=== PATIENT | female | born 1990 | race Caucasian/White ===

== ENCOUNTER 2024-11-17 12:29 | Outpatient (AMB) | payer OTHER, SELFPAY ==
--- NOTE | 2024-11-17 12:38 | MHC.OFFVIS ---
Vital Signs 11/17/24 12:48 Height 5 ft 7 in Weight 160 lb BMI 25.1 BP 162/96 H Blood Pressure Location Rt brachial Position Sitting Pulse 104 H Pulse Source Pulse Oximeter Pulse Oximetry (%) 100 Oxygen Delivery Method Room Air Intake Visit Reasons: Constipation Intake Note: New pt for initial eval of constipation. CC; Pt states she is here for second opinion from [facility]. Pt reports her PCP would like for her to have colonoscopy however, [facility] had refused to perform one for her. Pt has been experiencing RUQ pain, generalized abd cramping, bloating, and constipation for ~ 1 year. 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 Reports onset almost 3 years ago. Can go anwhere between 3-7 days without having a BM. Has been taking miralax and lactulose for this without significant change. Has also been eliminating certain triggers without much effect. one BM per week which is bristol scale 1-2. Has frequent urges but unable to evacuate. Strains. Spends 5-10 mins on the toilet. Uses a stool to keep her legs up while defecation. Diet: adequate hydration. Some room for fiber addition. Has good activity levels. Currently on linzess 145 mcg + lactulose once daily. Causes bloating and cramping. Did not notice much difference going from 72 to 145 mcg in dosing. Has also tried trulance in the past for almost a year before she switched to linzess. [facility] Medical History (Updated 11/17/24 @ 13:18 by Kalyani Isbell MD) Constipation Family History (Updated 11/17/24 @ 12:45 by CONNIE Avila) Maternal Grandfather Colon cancer Review of Systems Const All systems reviewed & are unremarkable except as noted in HPI and below Physical Exam Vital Signs: Last Vital Signs Pulse 104 H 11/17/24 12:48 BP 162/96 H 11/17/24 12:48 Pulse Ox 100 11/17/24 12:48 Oxygen Delivery Method Room Air 11/17/24 12:48 BMI result Body Mass Index 25.1 Assessment & Plan Assessment & Plan (1) IBS (irritable bowel syndrome): Code(s): K58.9 - Irritable bowel syndrome, unspecified Category: Medical Plan Sx are consistent with IBS-C. Limited effect with osmotic laxatives, trulance and linzess. Will trial amitiza. Plan: - Labs ordered to r/o other causes such as hypothyroid, hypercalcemia, celiac etc. - Cont good hydration - Add fiber supplementation - Cont to elevate legs while having a BM - Stop linzess, start amitiza 8 mcg BID - Stop lactulose to avoid bloating and cramping. Start miralax back instead - Reviewed miralax can be titrated to effect - Add bisacodyl 10 mg once daily x short term Follow up 8 weeks to review Orders: Orders TSH reflex Free T4 Today K58.9 - Irritable bowel syndrome, unspecified Complete Blood Count no Diff Today K58.9 - Irritable bowel syndrome, unspecified Immunoglobulin A Today K58.9 - Irritable bowel syndrome, unspecified Transglutaminase IgA Today K58.9 - Irritable bowel syndrome, unspecified Calcium Today K58.9 - Irritable bowel syndrome, unspecified Magnesium Today K58.9 - Irritable bowel syndrome, unspecified Medications: New lubiprostone (Amitiza) 8 mcg PO BID 180 caps 0RF 90 days bisacodyl 10 mg (2 x 5 mg) PO BEDTIME 28 tabs 0RF 14 days Coding Level of Care Code New Pt Level 4 (42024) Complex EM visit Add On G2211 Diagnoses IBS (irritable bowel syndrome) K58.9
[2024-11-17 12:48] VITALS: BP 162/96; PULSE 104; O2SAT 100; BMI 25.1
--- OUTSIDE RECORDS SUMMARY | 2024-11-17 13:06 | XMS_ITS | Clinical Summary ---
Author Organization [facility] ity Address [address] [place] [address] Care Team Providers Care Quartz Orientator Name Role Phone Enmanuel Galeana Primary Care Provider [phone] Medications Trulance 3 mg tablet TAKE 1 TABLET BY MOUTH DAILY 30 tablet 07/27/2024 Active lactulose (CHRONULAC) solution TAKE 30 ML BY MOUTH TWICE DAILY 473 mL 07/27/2024 Active Surgical History Surgery Date Site/Laterality Comments OTHER SURGICAL HISTORY PROCEDURE: DENIES PREVIOUS SURGERY Medical History Medical History Date Comments Opiate abuse, continuous (CM S/HCC V24, CMS/HCC V28) DX:Opiate abuse, continuous (HCC); COMMENT: released [facility] 01/05 Depression DX:Depression; C OMMENT: since 2004 Irritable bowel syndrome DX:Irri table bowel syndrome Abdominal cramping DX:Abdominal cramping Abdominal bloating DX:Abdominal bloating Family History Relation Name Status Comments Brother Alive 3 years younger than Radha Father Alive Mother Alive Social History Tobacco Use Types Packs/Day Years Used Date Smoking Tobacco: Former Smokeless Tobacco: Never Alcohol Use Standard Drinks/Week Comments Not Asked 0 (1 standard drink = 0.6 oz pur e alcohol) Comments Unknown Sex and Gender Information Value Date Recorded Sex Assigned at Not on file Legal Sex Female 9:05 PM EST Gender Identity Not on file Sexual Orientation Not on file Obstetrics History Last Filed Vital Signs Vital Sign Reading Time Taken Comments Blood Pressure 128/80 06/24/2023 8:21 AM EDT Sit ting L Arm Pulse 68 06/24/2023 8:21 AM EDT Temperature - - Respiratory Rate - - Oxygen Saturation - - Inhaled Oxygen Concentration - - Weight 72.1 kg (159 lb) 06/24/2023 8:21 AM EDT Height 170.2 cm (5' 7 ) 06/24/2023 8:21 AM EDT Body Mass Index 24.9 06/24/2023 8:21 AM EDT Plan of Treatment Health Maintenance Due Date Last Done Comments DTaP,Tdap,and Td Vaccines (1 - Tdap) 2009 Hepatitis A Vaccines (1 of 2 - Risk 2-dose series) 2009 Hepatitis B Vaccines (1 of 3 - 19+ 3-dose series) 2009 Cervical Cancer Screening: P ap Smear 2011 HIV Screening 03/16/2022 Hepatitis C Screening 03/16/2022 Social Influencers of Health Screening 03/16/2022 COVID-19 Vaccine (1 - 2023-2 5 season) 2023 Depression Screening 04/14/2024 Influenza Vaccine (#1) 2024 01/10/2015 HIB Vaccines Aged Out No longer eligi ble based on patient's age to complete this topic HPV Vaccines Aged Out No longer eligi ble based on patient's age to complete this topic IPV Vaccines Aged Out No longer eligi ble based on patient's age to complete this topic MMR Vaccines Aged Out No longer eligi ble based on patient's age to complete this topic Meningococcal ACWY Vaccine Aged Out N o longer eligible based on patient's age to complete this topic Meningococcal B Vaccine Aged Out No l onger eligible based on patient's age to complete this topic Pneumococcal Vaccine: Pediat rics (0 to 5 Years) and At-Risk Patients (6 to 49 Years) Aged Out No longer eligi ble based on patient's age to complete this topic RSV Immunization Patients Un jessica 20 months Aged Out No longer eligible b ased on patient's age to complete this topic Varicella Vaccines Aged Out No longer eligible based on patient's age to complete this topic Care Teams Quartz Orientator Relationship Specialty Start Date End Date Enmanuel Galeana PA [address] [place] [address] PCP - General 04/16/23
--- OUTSIDE RECORDS SUMMARY | 2024-11-17 13:06 | XMS_ITS | Patient Health Record ---
Author Organization [facility] [address] Address [address] [place] [address] Care Team Providers Care Primary Care Coordinator Name Role Phone BRII BOLAÑOS Unavailable [phone] EFRAÍN RUIZ Unavailable [phone] Allergies No Known Allergies Reason For Referral Reason evaluate. 2nd opinio n Diagnosis 1 Other constipation ( K59.09) Referral Organization [facility] [address] Referring Provider First Name EFRAÍN Referring Provider Last Name JOSEPH Referring Provider Speciality Internal M edicine Referred Provider Specialty Gastroentero logy General Notes Adina Sharma 2024 11:19:42 AM >[facility]ed [facility] Clinical Notes Jalil Gant 03:01:03 PM > Patient called in stating [facility] did not receive the referral. [id number], [phone]. Refaxed twice, Shayan Tavarez 08/30/2024 02:31:55 PM > faxed referral to [facility]. F [phone] P [phone], Jalil Gant 09/09/2024 01:56:51 PM > Spoke with Rashida. Booked on January 12 Referral Priority Routine Medications Medication SIG (Take, Route, Frequency, Duration) Notes Start Date End Date Status Multi Complete - as directed Orally Active Dicyclomine HCl 10 MG 1 capsules Orally Three times a day 10mg Active Lactulose 10 GM/15ML 15 mL as needed Ora lly Once a day; Duration: 30 days 01/27/2023 Active Excedrin Migraine 250-250-65 MG 2 tablets Orally Once a day Active Linzess 145 MCG TAKE 1 CAPSULE BY [facility] DAILY 30 MINUTES BEFORE FIRST MEAL OF THE DAY ON AN EMPTY STOMACH; Duration: 30 Active Social History Tobacco Use: Social History Observation Description Date Details (start date - stop date) Never Smoker NA - NA Tobacco Use/Smoking Question Answer Notes Are you a nonsmoker Section Notes: Tob: None ETOH: Social Drug. Former IV heroin use. 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 Problems Problem Type SNOMED Code ICD Code Onset Dates Problem Status W/U Status Risk Notes Problem Migraine without aura, not refractory (disorder) (250467074) Migraine, unspecified, not intractable, without status migrainosus (G43.909) Active confirmed Problem Venous insufficiency of leg (disorder) (558489569) Venous insufficiency (I87.2) Active confirmed Problem Refractory migraine (385735109) Intractable migraine with status migrainosus, unspecified migraine type (G43.911) Active confirmed Problem History of drug abuse (F19.11) Active confirmed Problem Constipation (55926257) Constipation (K59.00) Active confirmed Vital Signs Heart Rate 95 /min 08/30/2024 Blood pressure diastolic 86 mm Hg 08/30/2024 Oximetry 98 % 08/30/2024 Height 66 in 08/30/2024 Blood pressure systolic 136 mm Hg 08/30/2024 Weight 161.8 lbs 08/30/2024 BMI 26.11 kg/m2 08/30/2024 Encounters Encounter Location Date Provider Diagnosis [facility] [address] [place] [address] 12/10/2023 BRII BOLAÑOS Generalized abdomina l pain R10.84 ; Wellness examination Z00.00 ; Bloating R14.0 ; Gas pain R14.1 ; Depression, unspecified depression type F32.A ; Leg swelling M79.89 and Intractable migraine with status migrainosus, unspecified migraine type G43.[address] [facility] [address] [place] [address] 08/21/2024 EFRAÍN RUIZ Other constipation K59.[address] [facility] [address] [place] [address] 08/30/2024 BRII BOLAÑOS Generalized abdomina l pain R10.84 ; Chronic constipation K59.09 ; Bloating R14.0 ; Gas pain R14.1 ; Leg swelling M79.89 ; Intractable migraine with status migrainosus, unspecified migraine type G43.911 and Encounter for examination of blood pressure without abnormal findings Z01.30 [facility] [address] [place] [address] 07/27/2024 BRII BOLAÑOS [facility] [address] [place] [address] 08/22/2024 EFRAÍN RUIZ [facility] [address] [place] [address] 08/23/2024 BRII BOLAÑOS Assessments Encounter Date Diagnosis (ICD Code) Assessment Notes Treatment Notes Treatment Clinical Notes Section Notes 12/10/2023 Wellness examination (ICD-10 - Z00.00) Radha is a pleasant 33-year-old female presents the office for a complete physical. # Patient up-to-date on all routine screening and vaccines she is interested in. #Abd bloating/pain. At last visit, Counselled on use of excessive fiber causing actually increased constipation with lack of adequate water intake, as well as bloating. Decreased amount of Fiber One bars consumed. Continue with probiotics/prebiotic' s. Tried MiraLAX without relief, given lactulose which has been helping some. H. pylori breath test negative. Educated on bland diet, high-fiber foods, but avoiding fiber 1 bar given that it can cause constipation. Follow-up with gastroenterology at [facility]. They want to hold off on a colonoscopy at this time. CT of the abdomen and pelvis with IV contrast July 2020 showing large amount of stool in rectum without other findings, repeat 2023 negative. Patient taking Trulance for constipation which has not been helping significantly, therefore will trial Linzess, she was provided with samples. Also taking dicyclomine which has been helping as needed. GI did recommend amitriptyline which patient declines at this time. # Hx tob use: Quit 2012 # Hx of IVDA: Sober x 7 years #Depression: Sees a therapist, looking more for cognitive behavioral therapy, going through insurance for this. Used to be on medications for anxiety/depression but no longer needs them. #History of allergies: Seeing ndt inspector August 2023 #Leg swelling: US, CT abd & pelvis r/o pelvis mass Which was negative, complement studies neg. No longer taking Lasix. Blood pressure stable. Did consider renal ultrasound to rule out nephrotic syndrome, but no further workup needed at this time. Encouraged to continue with leg elevation/compression socks. # HTN.Blood pressure elevated at previous visits, controlled today. #Migraines: Patient taking Excedrin as needed with improvement in symptoms #Patient follows with [employer] closely, Due for Pap, discussed the importance that she does have a family history of cervical cancer. a history of an elective termination of at 19 years old with no concerns Patient to follow-up in 3 months to assess medication regimen, sooner as needed. Patient seen and examined. Comprehensive discussion was done on the following. 1. Nutrition: It is important to follow a healthy diet based on lots of vegetables and legumes and good fat. Avoid processed food and processed carbohydrates. Prepare your own meals. Read labels and avoid high fructose corn syrup, processed chemicals added to increase shelf life and preprepared meals. Avoid fast foods. Eat slowly and plan meals for a week. Try to count calories and be mindful off daily calorie intake. Get into the habit of keeping an eye on your weight by using an appropriate scale. Learn to log exercise and discussed fitness Apps like [employer] which can help keep log off calories taken versus calories burned. Local food should be preferred. Discussed Dirty Dozen Versus Clean Fifteen. Discussed healthy supplements like fish oil, Tumeric, Curcumin, Melatonin, Resveratrol, Probiotics, Vitamin-D, Alpha-Lipoic acid, Vitamin-D and coconut oil. 2. It is important to exercise regularly. Is a good habit to walk at least 30 minutes a day. Gentle weightlifting with standard precautions to protect the back. Finding activity like cycling or hiking and get into the habit of engaging in it. Stretching before and after the exercises important. It is also important to contact me if there are any problems like shortness of breath, chest pain, back pain and joint or muscle pain associated with the exercise. 3. Discussed age appropriate screening guidelines. Colonoscopy needs to start at age 50 with stool for occult blood as appropriate. There is a new test that can test for genetic abnormalities in the stool sample, Cologuard. This would not replace a colonoscopy but could be used as a screening tool for patients who do not want a colonoscopy. We discussed the importance of early detection of colon cancer. 4. Discussed current guidelines with respect to breast examination, mammogram and pap smear for early detection of breast and cervical cancer. Patient advised to follow up with these appointments. 5. Discussed safe driving and no use of smart phone while driving 6. Age-appropriate immunizations were discussed. A tetanus booster is needed every 10 years. Flu vaccine is recommended every year just before the start of the flu season. Shingles vaccine is recommended after age 50 but not all insurances cover it. Pneumonia vaccine is given after age 65 unless there are certain comorbidities for which it is started earlier. 7. Diagnostic labs were discussed. These could include/not limited to CBC CMP and lipids with fasting blood glucose and insulin levels. Vitamin D and hemoglobin A1c testing might be appropriate. All quetsions answered to patients satisfaction. Patient verbalized understanding of diagnosis and treatments explained. To call sooner prior to next visit it any questions/concerns arise. Case discussed with collaborating physician Charlene Coley who reviewed the assessment and plan. Chart, medications, labs, vital signs reviewed. Dictation was accomplished with the use of [employer] voice recognition software, prone to medical misidentifications and grammatical errors. This is unintentional and the practitioner does try to identify and correct these, but some could still be present. Please do not hesitate to contact practitioner for clarification. 08/21/2024 Other constipation (ICD-10 - K59.09) Chronic and ongoing constipation She is on a very low-dose of Linzess Will increase to 145 mg Will get an abdomen film today Will refer to [facility] for differing opinion She has not had colonoscopy screening should followup with GI for further constipation inquiries moving forward Of note, some information is being carried forward from prior records for informational purposes only and is being cited so that efficiency, safety and quality of the patient's care is not compromised This note was prepared using voice recognition software and direct typing Please excuse inadvertent decker operator or typing errors, or uncorrected word substitutions Although every attempt has been made by the provider to proofread this document, occasional misspellings and typographical errors may still be present Due to the previous pandemic, and the use of personal protective equipment (PPE) This may decrease voice recognition accuracy Inadvertent decker operator errors may occur 08/30/2024 Generalized abdominal pain (ICD-10 - R10.84) Radha is a pleasant 34-year-old female presents the office for a complete physical. # Patient up-to-date on all routine screening and vaccines she is interested in. #Abd bloating/pain. At last visit, Counselled on use of excessive fiber causing actually increased constipation with lack of adequate water intake, as well as bloating. Decreased amount of Fiber One bars consumed. Continue with probiotics/prebiotic' s. Tried MiraLAX without relief, given lactulose which has been helping some. H. pylori breath test negative. Educated on bland diet, high-fiber foods, but avoiding fiber 1 bar given that it can cause constipation. Used to follow with gastroenterology at [facility], but recently referred to gastroenterology at [facility], not scheduled till November so she is looking for a referral sooner. Will send to the [facility] clinic, patient will contact. Has had a history of CT of the abdomen and pelvis with IV contrast July 2020 showing large amount of stool in rectum without other findings, repeat 2023 negative. Now taking Linzess, without significant improvement. Recently had an abdominal x-ray without any concern for obstruction. Also taking dicyclomine 10 mg as needed. GI did recommend amitriptyline, but she declines at this time. Will refer to the [facility] clinic, consider colonoscopy. To be uncomfortable, going to the bathroom about 1 time weekly, with bloating. # Hx tob use: Quit 2012 # Hx of IVDA: Sober x 8 years #Depression: Sees a therapist, looking more for cognitive behavioral therapy, going through insurance for this. Used to be on medications for anxiety/depression but no longer needs them. #History of allergies: Seeing ndt inspector August 2023 #Leg swelling: US, CT abd & pelvis r/o pelvis mass Which was negative, complement studies neg. No longer taking Lasix. Blood pressure stable. Did consider renal ultrasound to rule out nephrotic syndrome, but no further workup needed at this time. Encouraged to continue with leg elevation/compression socks. # HTN.Blood pressure elevated at previous visits, controlled today. #Migraines: Patient taking Excedrin as needed with improvement in symptoms #Patient follows with [employer] closely, Due for Pap, discussed the importance that she does have a family history of cervical cancer. a history of an elective termination of at 19 years old with no concerns Patient to follow-up in December for complete physical, follow with gastroenterology in the meantime but discussed extensively criteria to call the office/emergency department criteria All quetsions answered to patients satisfaction. Patient verbalized understanding of diagnosis and treatments explained. To call sooner prior to next visit it any questions/concerns arise. Case discussed with collaborating physician Charlene Coley who reviewed the assessment and plan. Chart, medications, labs, vital signs reviewed. Dictation was accomplished with the use of [employer] voice recognition software, prone to medical misidentifications and grammatical errors. This is unintentional and the practitioner does try to identify and correct these, but some could still be present. Please do not hesitate to contact practitioner for clarification. 12/10/2023 Generalized abdominal pain (ICD-10 - R10.84) Radha is a pleasant 33-year-old female presents the office for a complete physical. # Patient up-to-date on all routine screening and vaccines she is interested in. #Abd bloating/pain. At last visit, Counselled on use of excessive fiber causing actually increased constipation with lack of adequate water intake, as well as bloating. Decreased amount of Fiber One bars consumed. Continue with probiotics/prebiotic' s. Tried MiraLAX without relief, given lactulose which has been helping some. H. pylori breath test negative. Educated on bland diet, high-fiber foods, but avoiding fiber 1 bar given that it can cause constipation. Follow-up with gastroenterology at [facility]. They want to hold off on a colonoscopy at this time. CT of the abdomen and pelvis with IV contrast July 2020 showing large amount of stool in rectum without other findings, repeat 2023 negative. Patient taking Trulance for constipation which has not been helping significantly, therefore will trial Linzess, she was provided with samples. Also taking dicyclomine which has been helping as needed. GI did recommend amitriptyline which patient declines at this time. # Hx tob use: Quit 2012 # Hx of IVDA: Sober x 7 years #Depression: Sees a therapist, looking more for cognitive behavioral therapy, going through insurance for this. Used to be on medications for anxiety/depression but no longer needs them. #History of allergies: Seeing ndt inspector August 2023 #Leg swelling: US, CT abd & pelvis r/o pelvis mass Which was negative, complement studies neg. No longer taking Lasix. Blood pressure stable. Did consider renal ultrasound to rule out nephrotic syndrome, but no further workup needed at this time. Encouraged to continue with leg elevation/compression socks. # HTN.Blood pressure elevated at previous visits, controlled today. #Migraines: Patient taking Excedrin as needed with improvement in symptoms #Patient follows with [employer] closely, Due for Pap, discussed the importance that she does have a family history of cervical cancer. a history of an elective termination of at 19 years old with no concerns Patient to follow-up in 3 months to assess medication regimen, sooner as needed. Patient seen and examined. Comprehensive discussion was done on the following. 1. Nutrition: It is important to follow a healthy diet based on lots of vegetables and legumes and good fat. Avoid processed food and processed carbohydrates. Prepare your own meals. Read labels and avoid high fructose corn syrup, processed chemicals added to increase shelf life and preprepared meals. Avoid fast foods. Eat slowly and plan meals for a week. Try to count calories and be mindful off daily calorie intake. Get into the habit of keeping an eye on your weight by using an appropriate scale. Learn to log exercise and discussed fitness Apps like [employer] which can help keep log off calories taken versus calories burned. Local food should be preferred. Discussed Dirty Dozen Versus Clean Fifteen. Discussed healthy supplements like fish oil, Tumeric, Curcumin, Melatonin, Resveratrol, Probiotics, Vitamin-D, Alpha-Lipoic acid, Vitamin-D and coconut oil. 2. It is important to exercise regularly. Is a good habit to walk at least 30 minutes a day. Gentle weightlifting with standard precautions to protect the back. Finding activity like cycling or hiking and get into the habit of engaging in it. Stretching before and after the exercises important. It is also important to contact me if there are any problems like shortness of breath, chest pain, back pain and joint or muscle pain associated with the exercise. 3. Discussed age appropriate screening guidelines. Colonoscopy needs to start at age 50 with stool for occult blood as appropriate. There is a new test that can test for genetic abnormalities in the stool sample, Cologuard. This would not replace a colonoscopy but could be used as a screening tool for patients who do not want a colonoscopy. We discussed the importance of early detection of colon cancer. 4. Discussed current guidelines with respect to breast examination, mammogram and pap smear for early detection of breast and cervical cancer. Patient advised to follow up with these appointments. 5. Discussed safe driving and no use of smart phone while driving 6. Age-appropriate immunizations were discussed. A tetanus booster is needed every 10 years. Flu vaccine is recommended every year just before the start of the flu season. Shingles vaccine is recommended after age 50 but not all insurances cover it. Pneumonia vaccine is given after age 65 unless there are certain comorbidities for which it is started earlier. 7. Diagnostic labs were discussed. These could include/not limited to CBC CMP and lipids with fasting blood glucose and insulin levels. Vitamin D and hemoglobin A1c testing might be appropriate. All quetsions answered to patients satisfaction. Patient verbalized understanding of diagnosis and treatments explained. To call sooner prior to next visit it any questions/concerns arise. Case discussed with collaborating physician Charlene Coley who reviewed the assessment and plan. Chart, medications, labs, vital signs reviewed. Dictation was accomplished with the use of [employer] voice recognition software, prone to medical misidentifications and grammatical errors. This is unintentional and the practitioner does try to identify and correct these, but some could still be present. Please do not hesitate to contact practitioner for clarification. 08/30/2024 Chronic constipation (ICD-10 - K59.09) Radha is a pleasant 34-year-old female presents the office for a complete physical. # Patient up-to-date on all routine screening and vaccines she is interested in. #Abd bloating/pain. At last visit, Counselled on use of excessive fiber causing actually increased constipation with lack of adequate water intake, as well as bloating. Decreased amount of Fiber One bars consumed. Continue with probiotics/prebiotic' s. Tried MiraLAX without relief, given lactulose which has been helping some. H. pylori breath test negative. Educated on bland diet, high-fiber foods, but avoiding fiber 1 bar given that it can cause constipation. Used to follow with gastroenterology at [facility], but recently referred to gastroenterology at [facility], not scheduled till November so she is looking for a referral sooner. Will send to the [facility], patient will contact. Has had a history of CT of the abdomen and pelvis with IV contrast July 2020 showing large amount of stool in rectum without other findings, repeat 2023 negative. Now taking Linzess, without significant improvement. Recently had an abdominal x-ray without any concern for obstruction. Also taking dicyclomine 10 mg as needed. GI did recommend amitriptyline, but she declines at this time. Will refer to the [facility], consider colonoscopy. To be uncomfortable, going to the bathroom about 1 time weekly, with bloating. # Hx tob use: Quit 2012 # Hx of IVDA: Sober x 8 years #Depression: Sees a therapist, looking more for cognitive behavioral therapy, going through insurance for this. Used to be on medications for anxiety/depression but no longer needs them. #History of allergies: Seeing ndt inspector August 2023 #Leg swelling: US, CT abd & pelvis r/o pelvis mass Which was negative, complement studies neg. No longer taking Lasix. Blood pressure stable. Did consider renal ultrasound to rule out nephrotic syndrome, but no further workup needed at this time. Encouraged to continue with leg elevation/compression socks. # HTN.Blood pressure elevated at previous visits, controlled today. #Migraines: Patient taking Excedrin as needed with improvement in symptoms #Patient follows with [employer] closely, Due for Pap, discussed the importance that she does have a family history of cervical cancer. a history of an elective termination of at 19 years old with no concerns Patient to follow-up in December for complete physical, follow with gastroenterology in the meantime but discussed extensively criteria to call the office/emergency department criteria All quetsions answered to patients satisfaction. Patient verbalized understanding of diagnosis and treatments explained. To call sooner prior to next visit it any questions/concerns arise. Case discussed with collaborating physician Charlene Coley who reviewed the assessment and plan. Chart, medications, labs, vital signs reviewed. Dictation was accomplished with the use of [employer] voice recognition software, prone to medical misidentifications and grammatical errors. This is unintentional and the practitioner does try to identify and correct these, but some could still be present. Please do not hesitate to contact practitioner for clarification. 08/30/2024 Bloating (ICD-10 - R14.0) Radha is a pleasant 34-year-old female presents the office for a complete physical. # Patient up-to-date on all routine screening and vaccines she is interested in. #Abd bloating/pain. At last visit, Counselled on use of excessive fiber causing actually increased constipation with lack of adequate water intake, as well as bloating. Decreased amount of Fiber One bars consumed. Continue with probiotics/prebiotic' s. Tried MiraLAX without relief, given lactulose which has been helping some. H. pylori breath test negative. Educated on bland diet, high-fiber foods, but avoiding fiber 1 bar given that it can cause constipation. [facility] [place], but recently referred to gastroenterology at [place], not scheduled till November so she is looking for a referral sooner. Will send to the [facility] clinic, patient will contact. Has had a history of CT of the abdomen and pelvis with IV contrast July 2020 showing large amount of stool in rectum without other findings, repeat 2023 negative. Now taking Linzess, without significant improvement. Recently had an abdominal x-ray without any concern for obstruction. Also taking dicyclomine 10 mg as needed. GI did recommend amitriptyline, but she declines at this time. Will refer to the [facility] clinic, consider colonoscopy. To be uncomfortable, going to the bathroom about 1 time weekly, with bloating. # Hx tob use: Quit 2012 # Hx of IVDA: Sober x 8 years #Depression: Sees a therapist, looking more for cognitive behavioral therapy, going through insurance for this. Used to be on medications for anxiety/depression but no longer needs them. #History of allergies: Seeing ndt inspector August 2023 #Leg swelling: US, CT abd & pelvis r/o pelvis mass Which was negative, complement studies neg. No longer taking Lasix. Blood pressure stable. Did consider renal ultrasound to rule out nephrotic syndrome, but no further workup needed at this time. Encouraged to continue with leg elevation/compression socks. # HTN.Blood pressure elevated at previous visits, controlled today. #Migraines: Patient taking Excedrin as needed with improvement in symptoms #Patient follows with [employer] closely, Due for Pap, discussed the importance that she does have a family history of cervical cancer. a history of an elective termination of at 19 years old with no concerns Patient to follow-up in December for complete physical, follow with gastroenterology in the meantime but discussed extensively criteria to call the office/emergency department criteria All quetsions answered to patients satisfaction. Patient verbalized understanding of diagnosis and treatments explained. To call sooner prior to next visit it any questions/concerns arise. Case discussed with collaborating physician Charlene Coley who reviewed the assessment and plan. Chart, medications, labs, vital signs reviewed. Dictation was accomplished with the use of [employer] voice recognition software, prone to medical misidentifications and grammatical errors. This is unintentional and the practitioner does try to identify and correct these, but some could still be present. Please do not hesitate to contact practitioner for clarification. 12/10/2023 Bloating (ICD-10 - R14.0) Radha is a pleasant 33-year-old female presents the office for a complete physical. # Patient up-to-date on all routine screening and vaccines she is interested in. #Abd bloating/pain. At last visit, Counselled on use of excessive fiber causing actually increased constipation with lack of adequate water intake, as well as bloating. Decreased amount of Fiber One bars consumed. Continue with probiotics/prebiotic' s. Tried MiraLAX without relief, given lactulose which has been helping some. H. pylori breath test negative. Educated on bland diet, high-fiber foods, but avoiding fiber 1 bar given that it can cause constipation. Follow-up with gastroenterology at [facility] [place]. They want to hold off on a colonoscopy at this time. CT of the abdomen and pelvis with IV contrast July 2020 showing large amount of stool in rectum without other findings, repeat 2023 negative. Patient taking Trulance for constipation which has not been helping significantly, therefore will trial Linzess, she was provided with samples. Also taking dicyclomine which has been helping as needed. GI did recommend amitriptyline which patient declines at this time. # Hx tob use: Quit 2012 # Hx of IVDA: Sober x 7 years #Depression: Sees a therapist, looking more for cognitive behavioral therapy, going through insurance for this. Used to be on medications for anxiety/depression but no longer needs them. #History of allergies: Seeing ndt inspector August 2023 #Leg swelling: US, CT abd & pelvis r/o pelvis mass Which was negative, complement studies neg. No longer taking Lasix. Blood pressure stable. Did consider renal ultrasound to rule out nephrotic syndrome, but no further workup needed at this time. Encouraged to continue with leg elevation/compression socks. # HTN.Blood pressure elevated at previous visits, controlled today. #Migraines: Patient taking Excedrin as needed with improvement in symptoms #Patient follows with [employer] closely, Due for Pap, discussed the importance that she does have a family history of cervical cancer. a history of an elective termination of at 19 years old with no concerns Patient to follow-up in 3 months to assess medication regimen, sooner as needed. Patient seen and examined. Comprehensive discussion was done on the following. 1. Nutrition: It is important to follow a healthy diet based on lots of vegetables and legumes and good fat. Avoid processed food and processed carbohydrates. Prepare your own meals. Read labels and avoid high fructose corn syrup, processed chemicals added to increase shelf life and preprepared meals. Avoid fast foods. Eat slowly and plan meals for a week. Try to count calories and be mindful off daily calorie intake. Get into the habit of keeping an eye on your weight by using an appropriate scale. Learn to log exercise and discussed fitness Apps like [employer] which can help keep log off calories taken versus calories burned. Local food should be preferred. Discussed Dirty Dozen Versus Clean Fifteen. Discussed healthy supplements like fish oil, Tumeric, Curcumin, Melatonin, Resveratrol, Probiotics, Vitamin-D, Alpha-Lipoic acid, Vitamin-D and coconut oil. 2. It is important to exercise regularly. Is a good habit to walk at least 30 minutes a day. Gentle weightlifting with standard precautions to protect the back. Finding activity like cycling or hiking and get into the habit of engaging in it. Stretching before and after the exercises important. It is also important to contact me if there are any problems like shortness of breath, chest pain, back pain and joint or muscle pain associated with the exercise. 3. Discussed age appropriate screening guidelines. Colonoscopy needs to start at age 50 with stool for occult blood as appropriate. There is a new test that can test for genetic abnormalities in the stool sample, Cologuard. This would not replace a colonoscopy but could be used as a screening tool for patients who do not want a colonoscopy. We discussed the importance of early detection of colon cancer. 4. Discussed current guidelines with respect to breast examination, mammogram and pap smear for early detection of breast and cervical cancer. Patient advised to follow up with these appointments. 5. Discussed safe driving and no use of smart phone while driving 6. Age-appropriate immunizations were discussed. A tetanus booster is needed every 10 years. Flu vaccine is recommended every year just before the start of the flu season. Shingles vaccine is recommended after age 50 but not all insurances cover it. Pneumonia vaccine is given after age 65 unless there are certain comorbidities for which it is started earlier. 7. Diagnostic labs were discussed. These could include/not limited to CBC CMP and lipids with fasting blood glucose and insulin levels. Vitamin D and hemoglobin A1c testing might be appropriate. All quetsions answered to patients satisfaction. Patient verbalized understanding of diagnosis and treatments explained. To call sooner prior to next visit it any questions/concerns arise. Case discussed with collaborating physician Charlene Coley who reviewed the assessment and plan. Chart, medications, labs, vital signs reviewed. Dictation was accomplished with the use of [employer] voice recognition software, prone to medical misidentifications and grammatical errors. This is unintentional and the practitioner does try to identify and correct these, but some could still be present. Please do not hesitate to contact practitioner for clarification. 08/30/2024 Gas pain (ICD-10 - R14.1) Radha is a pleasant 34-year-old female presents the office for a complete physical. # Patient up-to-date on all routine screening and vaccines she is interested in. #Abd bloating/pain. At last visit, Counselled on use of excessive fiber causing actually increased constipation with lack of adequate water intake, as well as bloating. Decreased amount of Fiber One bars consumed. Continue with probiotics/prebiotic' s. Tried MiraLAX without relief, given lactulose which has been helping some. H. pylori breath test negative. Educated on bland diet, high-fiber foods, but avoiding fiber 1 bar given that it can cause constipation. Used to follow with gastroenterology at [facility] [place], but recently referred to gastroenterology at [place], not scheduled till November so she is looking for a referral sooner. Will send to the [facility], patient will contact. Has had a history of CT of the abdomen and pelvis with IV contrast July 2020 showing large amount of stool in rectum without other findings, repeat 2023 negative. Now taking Linzess, without significant improvement. Recently had an abdominal x-ray without any concern for obstruction. Also taking dicyclomine 10 mg as needed. GI did recommend amitriptyline, but she declines at this time. Will refer to the [facility], consider colonoscopy. To be uncomfortable, going to the bathroom about 1 time weekly, with bloating. # Hx tob use: Quit 2012 # Hx of IVDA: Sober x 8 years #Depression: Sees a therapist, looking more for cognitive behavioral therapy, going through insurance for this. Used to be on medications for anxiety/depression but no longer needs them. #History of allergies: Seeing ndt inspector August 2023 #Leg swelling: US, CT abd & pelvis r/o pelvis mass Which was negative, complement studies neg. No longer taking Lasix. Blood pressure stable. Did consider renal ultrasound to rule out nephrotic syndrome, but no further workup needed at this time. Encouraged to continue with leg elevation/compression socks. # HTN.Blood pressure elevated at previous visits, controlled today. #Migraines: Patient taking Excedrin as needed with improvement in symptoms #Patient follows with [employer] closely, Due for Pap, discussed the importance that she does have a family history of cervical cancer. a history of an elective termination of at 19 years old with no concerns Patient to follow-up in December for complete physical, follow with gastroenterology in the meantime but discussed extensively criteria to call the office/emergency department criteria All quetsions answered to patients satisfaction. Patient verbalized understanding of diagnosis and treatments explained. To call sooner prior to next visit it any questions/concerns arise. Case discussed with collaborating physician Charlene Coley who reviewed the assessment and plan. Chart, medications, labs, vital signs reviewed. Dictation was accomplished with the use of [employer] voice recognition software, prone to medical misidentifications and grammatical errors. This is unintentional and the practitioner does try to identify and correct these, but some could still be present. Please do not hesitate to contact practitioner for clarification. 12/10/2023 Gas pain (ICD-10 - R14.1) Radha is a pleasant 33-year-old female presents the office for a complete physical. # Patient up-to-date on all routine screening and vaccines she is interested in. #Abd bloating/pain. At last visit, Counselled on use of excessive fiber causing actually increased constipation with lack of adequate water intake, as well as bloating. Decreased amount of Fiber One bars consumed. Continue with probiotics/prebiotic' s. Tried MiraLAX without relief, given lactulose which has been helping some. H. pylori breath test negative. Educated on bland diet, high-fiber foods, but avoiding fiber 1 bar given that it can cause constipation. Follow-up with gastroenterology at [facility] [place]. They want to hold off on a colonoscopy at this time. CT of the abdomen and pelvis with IV contrast July 2020 showing large amount of stool in rectum without other findings, repeat 2023 negative. Patient taking Trulance for constipation which has not been helping significantly, therefore will trial Linzess, she was provided with samples. Also taking dicyclomine which has been helping as needed. GI did recommend amitriptyline which patient declines at this time. # Hx tob use: Quit 2012 # Hx of IVDA: Sober x 7 years #Depression: Sees a therapist, looking more for cognitive behavioral therapy, going through insurance for this. Used to be on medications for anxiety/depression but no longer needs them. #History of allergies: Seeing ndt inspector August 2023 #Leg swelling: US, CT abd & pelvis r/o pelvis mass Which was negative, complement studies neg. No longer taking Lasix. Blood pressure stable. Did consider renal ultrasound to rule out nephrotic syndrome, but no further workup needed at this time. Encouraged to continue with leg elevation/compression socks. # HTN.Blood pressure elevated at previous visits, controlled today. #Migraines: Patient taking Excedrin as needed with improvement in symptoms #Patient follows with [employer] closely, Due for Pap, discussed the importance that she does have a family history of cervical cancer. a history of an elective termination of at 19 years old with no concerns Patient to follow-up in 3 months to assess medication regimen, sooner as needed. Patient seen and examined. Comprehensive discussion was done on the following. 1. Nutrition: It is important to follow a healthy diet based on lots of vegetables and legumes and good fat. Avoid processed food and processed carbohydrates. Prepare your own meals. Read labels and avoid high fructose corn syrup, processed chemicals added to increase shelf life and preprepared meals. Avoid fast foods. Eat slowly and plan meals for a week. Try to count calories and be mindful off daily calorie intake. Get into the habit of keeping an eye on your weight by using an appropriate scale. Learn to log exercise and discussed fitness Apps like [employer] which can help keep log off calories taken versus calories burned. Local food should be preferred. Discussed Dirty Dozen Versus Clean Fifteen. Discussed healthy supplements like fish oil, Tumeric, Curcumin, Melatonin, Resveratrol, Probiotics, Vitamin-D, Alpha-Lipoic acid, Vitamin-D and coconut oil. 2. It is important to exercise regularly. Is a good habit to walk at least 30 minutes a day. Gentle weightlifting with standard precautions to protect the back. Finding activity like cycling or hiking and get into the habit of engaging in it. Stretching before and after the exercises important. It is also important to contact me if there are any problems like shortness of breath, chest pain, back pain and joint or muscle pain associated with the exercise. 3. Discussed age appropriate screening guidelines. Colonoscopy needs to start at age 50 with stool for occult blood as appropriate. There is a new test that can test for genetic abnormalities in the stool sample, Cologuard. This would not replace a colonoscopy but could be used as a screening tool for patients who do not want a colonoscopy. We discussed the importance of early detection of colon cancer. 4. Discussed current guidelines with respect to breast examination, mammogram and pap smear for early detection of breast and cervical cancer. Patient advised to follow up with these appointments. 5. Discussed safe driving and no use of smart phone while driving 6. Age-appropriate immunizations were discussed. A tetanus booster is needed every 10 years. Flu vaccine is recommended every year just before the start of the flu season. Shingles vaccine is recommended after age 50 but not all insurances cover it. Pneumonia vaccine is given after age 65 unless there are certain comorbidities for which it is started earlier. 7. Diagnostic labs were discussed. These could include/not limited to CBC CMP and lipids with fasting blood glucose and insulin levels. Vitamin D and hemoglobin A1c testing might be appropriate. All quetsions answered to patients satisfaction. Patient verbalized understanding of diagnosis and treatments explained. To call sooner prior to next visit it any questions/concerns arise. Case discussed with collaborating physician Charlene Coley who reviewed the assessment and plan. Chart, medications, labs, vital signs reviewed. Dictation was accomplished with the use of [employer] voice recognition software, prone to medical misidentifications and grammatical errors. This is unintentional and the practitioner does try to identify and correct these, but some could still be present. Please do not hesitate to contact practitioner for clarification. 08/30/2024 Leg swelling (ICD-10 - M79.89) Radha is a pleasant 34-year-old female presents the office for a complete physical. # Patient up-to-date on all routine screening and vaccines she is interested in. #Abd bloating/pain. At last visit, Counselled on use of excessive fiber causing actually increased constipation with lack of adequate water intake, as well as bloating. Decreased amount of Fiber One bars consumed. Continue with probiotics/prebiotic' s. Tried MiraLAX without relief, given lactulose which has been helping some. H. pylori breath test negative. Educated on bland diet, high-fiber foods, but avoiding fiber 1 bar given that it can cause constipation. Used to follow with gastroenterology at [facility] [place], but recently referred to gastroenterology at [place], not scheduled till November so she is looking for a referral sooner. Will send to the [facility] clinic, patient will contact. Has had a history of CT of the abdomen and pelvis with IV contrast July 2020 showing large amount of stool in rectum without other findings, repeat 2023 negative. Now taking Linzess, without significant improvement. Recently had an abdominal x-ray without any concern for obstruction. Also taking dicyclomine 10 mg as needed. GI did recommend amitriptyline, but she declines at this time. Will refer to the [facility] clinic, consider colonoscopy. To be uncomfortable, going to the bathroom about 1 time weekly, with bloating. # Hx tob use: Quit 2012 # Hx of IVDA: Sober x 8 years #Depression: Sees a therapist, looking more for cognitive behavioral therapy, going through insurance for this. Used to be on medications for anxiety/depression but no longer needs them. #History of allergies: Seeing ndt inspector August 2023 #Leg swelling: US, CT abd & pelvis r/o pelvis mass Which was negative, complement studies neg. No longer taking Lasix. Blood pressure stable. Did consider renal ultrasound to rule out nephrotic syndrome, but no further workup needed at this time. Encouraged to continue with leg elevation/compression socks. # HTN.Blood pressure elevated at previous visits, controlled today. #Migraines: Patient taking Excedrin as needed with improvement in symptoms #Patient follows with [employer] closely, Due for Pap, discussed the importance that she does have a family history of cervical cancer. a history of an elective termination of at 19 years old with no concerns Patient to follow-up in December for complete physical, follow with gastroenterology in the meantime but discussed extensively criteria to call the office/emergency department criteria All quetsions answered to patients satisfaction. Patient verbalized understanding of diagnosis and treatments explained. To call sooner prior to next visit it any questions/concerns arise. Case discussed with collaborating physician Charlene Coley who reviewed the assessment and plan. Chart, medications, labs, vital signs reviewed. Dictation was accomplished with the use of [employer] voice recognition software, prone to medical misidentifications and grammatical errors. This is unintentional and the practitioner does try to identify and correct these, but some could still be present. Please do not hesitate to contact practitioner for clarification. 12/10/2023 Depression, unspecified depression type (ICD-10 - F32.A) Radha is a pleasant 33-year-old female presents the office for a complete physical. # Patient up-to-date on all routine screening and vaccines she is interested in. #Abd bloating/pain. At last visit, Counselled on use of excessive fiber causing actually increased constipation with lack of adequate water intake, as well as bloating. Decreased amount of Fiber One bars consumed. Continue with probiotics/prebiotic' s. Tried MiraLAX without relief, given lactulose which has been helping some. H. pylori breath test negative. Educated on bland diet, high-fiber foods, but avoiding fiber 1 bar given that it can cause constipation. Follow-up with gastroenterology at [facility] [place]. They want to hold off on a colonoscopy at this time. CT of the abdomen and pelvis with IV contrast July 2020 showing large amount of stool in rectum without other findings, repeat 2023 negative. Patient taking Trulance for constipation which has not been helping significantly, therefore will trial Linzess, she was provided with samples. Also taking dicyclomine which has been helping as needed. GI did recommend amitriptyline which patient declines at this time. # Hx tob use: Quit 2012 # Hx of IVDA: Sober x 7 years #Depression: Sees a therapist, looking more for cognitive behavioral therapy, going through insurance for this. Used to be on medications for anxiety/depression but no longer needs them. #History of allergies: Seeing ndt inspector August 2023 #Leg swelling: US, CT abd & pelvis r/o pelvis mass Which was negative, complement studies neg. No longer taking Lasix. Blood pressure stable. Did consider renal ultrasound to rule out nephrotic syndrome, but no further workup needed at this time. Encouraged to continue with leg elevation/compression socks. # HTN.Blood pressure elevated at previous visits, controlled today. #Migraines: Patient taking Excedrin as needed with improvement in symptoms #Patient follows with [employer] closely, Due for Pap, discussed the importance that she does have a family history of cervical cancer. a history of an elective termination of at 19 years old with no concerns Patient to follow-up in 3 months to assess medication regimen, sooner as needed. Patient seen and examined. Comprehensive discussion was done on the following. 1. Nutrition: It is important to follow a healthy diet based on lots of vegetables and legumes and good fat. Avoid processed food and processed carbohydrates. Prepare your own meals. Read labels and avoid high fructose corn syrup, processed chemicals added to increase shelf life and preprepared meals. Avoid fast foods. Eat slowly and plan meals for a week. Try to count calories and be mindful off daily calorie intake. Get into the habit of keeping an eye on your weight by using an appropriate scale. Learn to log exercise and discussed fitness Apps like [employer] which can help keep log off calories taken versus calories burned. Local food should be preferred. Discussed Dirty Dozen Versus Clean Fifteen. Discussed healthy supplements like fish oil, Tumeric, Curcumin, Melatonin, Resveratrol, Probiotics, Vitamin-D, Alpha-Lipoic acid, Vitamin-D and coconut oil. 2. It is important to exercise regularly. Is a good habit to walk at least 30 minutes a day. Gentle weightlifting with standard precautions to protect the back. Finding activity like cycling or hiking and get into the habit of engaging in it. Stretching before and after the exercises important. It is also important to contact me if there are any problems like shortness of breath, chest pain, back pain and joint or muscle pain associated with the exercise. 3. Discussed age appropriate screening guidelines. Colonoscopy needs to start at age 50 with stool for occult blood as appropriate. There is a new test that can test for genetic abnormalities in the stool sample, Cologuard. This would not replace a colonoscopy but could be used as a screening tool for patients who do not want a colonoscopy. We discussed the importance of early detection of colon cancer. 4. Discussed current guidelines with respect to breast examination, mammogram and pap smear for early detection of breast and cervical cancer. Patient advised to follow up with these appointments. 5. Discussed safe driving and no use of smart phone while driving 6. Age-appropriate immunizations were discussed. A tetanus booster is needed every 10 years. Flu vaccine is recommended every year just before the start of the flu season. Shingles vaccine is recommended after age 50 but not all insurances cover it. Pneumonia vaccine is given after age 65 unless there are certain comorbidities for which it is started earlier. 7. Diagnostic labs were discussed. These could include/not limited to CBC CMP and lipids with fasting blood glucose and insulin levels. Vitamin D and hemoglobin A1c testing might be appropriate. All quetsions answered to patients satisfaction. Patient verbalized understanding of diagnosis and treatments explained. To call sooner prior to next visit it any questions/concerns arise. Case discussed with collaborating physician Charlene Coley who reviewed the assessment and plan. Chart, medications, labs, vital signs reviewed. Dictation was accomplished with the use of [employer]chron[employer] voice recognition software, prone to medical misidentifications and grammatical errors. This is unintentional and the practitioner does try to identify and correct these, but some could still be present. Please do not hesitate to contact practitioner for clarification. 12/10/2023 Leg swelling (ICD-10 - M79.89) Radha is a pleasant 33-year-old female presents the office for a complete physical. # Patient up-to-date on all routine screening and vaccines she is interested in. #Abd bloating/pain. At last visit, Counselled on use of excessive fiber causing actually increased constipation with lack of adequate water intake, as well as bloating. Decreased amount of Fiber One bars consumed. Continue with probiotics/prebiotic' s. Tried MiraLAX without relief, given lactulose which has been helping some. H. pylori breath test negative. Educated on bland diet, high-fiber foods, but avoiding fiber 1 bar given that it can cause constipation. Follow-up with gastroenterology at [facility]. They want to hold off on a colonoscopy at this time. CT of the abdomen and pelvis with IV contrast July 2020 showing large amount of stool in rectum without other findings, repeat 2023 negative. Patient taking Trulance for constipation which has not been helping significantly, therefore will trial Linzess, she was provided with samples. Also taking dicyclomine which has been helping as needed. GI did recommend amitriptyline which patient declines at this time. # Hx tob use: Quit 2012 # Hx of IVDA: Sober x 7 years #Depression: Sees a therapist, looking more for cognitive behavioral therapy, going through insurance for this. Used to be on medications for anxiety/depression but no longer needs them. #History of allergies: Seeing ndt inspector August 2023 #Leg swelling: US, CT abd & pelvis r/o pelvis mass Which was negative, complement studies neg. No longer taking Lasix. Blood pressure stable. Did consider renal ultrasound to rule out nephrotic syndrome, but no further workup needed at this time. Encouraged to continue with leg elevation/compression socks. # HTN.Blood pressure elevated at previous visits, controlled today. #Migraines: Patient taking Excedrin as needed with improvement in symptoms #Patient follows with [employer] closely, Due for Pap, discussed the importance that she does have a family history of cervical cancer. a history of an elective termination of at 19 years old with no concerns Patient to follow-up in 3 months to assess medication regimen, sooner as needed. Patient seen and examined. Comprehensive discussion was done on the following. 1. Nutrition: It is important to follow a healthy diet based on lots of vegetables and legumes and good fat. Avoid processed food and processed carbohydrates. Prepare your own meals. Read labels and avoid high fructose corn syrup, processed chemicals added to increase shelf life and preprepared meals. Avoid fast foods. Eat slowly and plan meals for a week. Try to count calories and be mindful off daily calorie intake. Get into the habit of keeping an eye on your weight by using an appropriate scale. Learn to log exercise and discussed fitness Apps like [employer] which can help keep log off calories taken versus calories burned. Local food should be preferred. Discussed Dirty Dozen Versus Clean Fifteen. Discussed healthy supplements like fish oil, Tumeric, Curcumin, Melatonin, Resveratrol, Probiotics, Vitamin-D, Alpha-Lipoic acid, Vitamin-D and coconut oil. 2. It is important to exercise regularly. Is a good habit to walk at least 30 minutes a day. Gentle weightlifting with standard precautions to protect the back. Finding activity like cycling or hiking and get into the habit of engaging in it. Stretching before and after the exercises important. It is also important to contact me if there are any problems like shortness of breath, chest pain, back pain and joint or muscle pain associated with the exercise. 3. Discussed age appropriate screening guidelines. Colonoscopy needs to start at age 50 with stool for occult blood as appropriate. There is a new test that can test for genetic abnormalities in the stool sample, Cologuard. This would not replace a colonoscopy but could be used as a screening tool for patients who do not want a colonoscopy. We discussed the importance of early detection of colon cancer. 4. Discussed current guidelines with respect to breast examination, mammogram and pap smear for early detection of breast and cervical cancer. Patient advised to follow up with these appointments. 5. Discussed safe driving and no use of smart phone while driving 6. Age-appropriate immunizations were discussed. A tetanus booster is needed every 10 years. Flu vaccine is recommended every year just before the start of the flu season. Shingles vaccine is recommended after age 50 but not all insurances cover it. Pneumonia vaccine is given after age 65 unless there are certain comorbidities for which it is started earlier. 7. Diagnostic labs were discussed. These could include/not limited to CBC CMP and lipids with fasting blood glucose and insulin levels. Vitamin D and hemoglobin A1c testing might be appropriate. All quetsions answered to patients satisfaction. Patient verbalized understanding of diagnosis and treatments explained. To call sooner prior to next visit it any questions/concerns arise. Case discussed with collaborating physician Charlene Coley who reviewed the assessment and plan. Chart, medications, labs, vital signs reviewed. Dictation was accomplished with the use of [employer] voice recognition software, prone to medical misidentifications and grammatical errors. This is unintentional and the practitioner does try to identify and correct these, but some could still be present. Please do not hesitate to contact practitioner for clarification. 08/30/2024 Intractable migraine with status migrainosus, unspecified migraine type (ICD-10 - G43.911) Radha is a pleasant 34-year-old female presents the office for a complete physical. # Patient up-to-date on all routine screening and vaccines she is interested in. #Abd bloating/pain. At last visit, Counselled on use of excessive fiber causing actually increased constipation with lack of adequate water intake, as well as bloating. Decreased amount of Fiber One bars consumed. Continue with probiotics/prebiotic' s. Tried MiraLAX without relief, given lactulose which has been helping some. H. pylori breath test negative. Educated on bland diet, high-fiber foods, but avoiding fiber 1 bar given that it can cause constipation. Used to follow with gastroenterology at [facility], but recently referred to gastroenterology at [place], not scheduled till November so she is looking for a referral sooner. Will send to the [facility] clinic, patient will contact. Has had a history of CT of the abdomen and pelvis with IV contrast July 2020 showing large amount of stool in rectum without other findings, repeat 2023 negative. Now taking Linzess, without significant improvement. Recently had an abdominal x-ray without any concern for obstruction. Also taking dicyclomine 10 mg as needed. GI did recommend amitriptyline, but she declines at this time. Will refer to the [facility] clinic, consider colonoscopy. To be uncomfortable, going to the bathroom about 1 time weekly, with bloating. # Hx tob use: Quit 2012 # Hx of IVDA: Sober x 8 years #Depression: Sees a therapist, looking more for cognitive behavioral therapy, going through insurance for this. Used to be on medications for anxiety/depression but no longer needs them. #History of allergies: Seeing ndt inspector August 2023 #Leg swelling: US, CT abd & pelvis r/o pelvis mass Which was negative, complement studies neg. No longer taking Lasix. Blood pressure stable. Did consider renal ultrasound to rule out nephrotic syndrome, but no further workup needed at this time. Encouraged to continue with leg elevation/compression socks. # HTN.Blood pressure elevated at previous visits, controlled today. #Migraines: Patient taking Excedrin as needed with improvement in symptoms #Patient follows with [employer] closely, Due for Pap, discussed the importance that she does have a family history of cervical cancer. a history of an elective termination of at 19 years old with no concerns Patient to follow-up in December for complete physical, follow with gastroenterology in the meantime but discussed extensively criteria to call the office/emergency department criteria All quetsions answered to patients satisfaction. Patient verbalized understanding of diagnosis and treatments explained. To call sooner prior to next visit it any questions/concerns arise. Case discussed with collaborating physician Charlene Coley who reviewed the assessment and plan. Chart, medications, labs, vital signs reviewed. Dictation was accomplished with the use of [employer] voice recognition software, prone to medical misidentifications and grammatical errors. This is unintentional and the practitioner does try to identify and correct these, but some could still be present. Please do not hesitate to contact practitioner for clarification. 12/10/2023 Intractable migraine with status migrainosus, unspecified migraine type (ICD-10 - G43.911) Radha is a pleasant 33-year-old female presents the office for a complete physical. # Patient up-to-date on all routine screening and vaccines she is interested in. #Abd bloating/pain. At last visit, Counselled on use of excessive fiber causing actually increased constipation with lack of adequate water intake, as well as bloating. Decreased amount of Fiber One bars consumed. Continue with probiotics/prebiotic' s. Tried MiraLAX without relief, given lactulose which has been helping some. H. pylori breath test negative. Educated on bland diet, high-fiber foods, but avoiding fiber 1 bar given that it can cause constipation. Follow-up with gastroenterology at [facility]. They want to hold off on a colonoscopy at this time. CT of the abdomen and pelvis with IV contrast July 2020 showing large amount of stool in rectum without other findings, repeat 2023 negative. Patient taking Trulance for constipation which has not been helping significantly, therefore will trial Linzess, she was provided with samples. Also taking dicyclomine which has been helping as needed. GI did recommend amitriptyline which patient declines at this time. # Hx tob use: Quit 2012 # Hx of IVDA: Sober x 7 years #Depression: Sees a therapist, looking more for cognitive behavioral therapy, going through insurance for this. Used to be on medications for anxiety/depression but no longer needs them. #History of allergies: Seeing ndt inspector August 2023 #Leg swelling: US, CT abd & pelvis r/o pelvis mass Which was negative, complement studies neg. No longer taking Lasix. Blood pressure stable. Did consider renal ultrasound to rule out nephrotic syndrome, but no further workup needed at this time. Encouraged to continue with leg elevation/compression socks. # HTN.Blood pressure elevated at previous visits, controlled today. #Migraines: Patient taking Excedrin as needed with improvement in symptoms #Patient follows with [employer] closely, Due for Pap, discussed the importance that she does have a family history of cervical cancer. a history of an elective termination of at 19 years old with no concerns Patient to follow-up in 3 months to assess medication regimen, sooner as needed. Patient seen and examined. Comprehensive discussion was done on the following. 1. Nutrition: It is important to follow a healthy diet based on lots of vegetables and legumes and good fat. Avoid processed food and processed carbohydrates. Prepare your own meals. Read labels and avoid high fructose corn syrup, processed chemicals added to increase shelf life and preprepared meals. Avoid fast foods. Eat slowly and plan meals for a week. Try to count calories and be mindful off daily calorie intake. Get into the habit of keeping an eye on your weight by using an appropriate scale. Learn to log exercise and discussed fitness Apps like [employer] which can help keep log off calories taken versus calories burned. Local food should be preferred. Discussed Dirty Dozen Versus Clean Fifteen. Discussed healthy supplements like fish oil, Tumeric, Curcumin, Melatonin, Resveratrol, Probiotics, Vitamin-D, Alpha-Lipoic acid, Vitamin-D and coconut oil. 2. It is important to exercise regularly. Is a good habit to walk at least 30 minutes a day. Gentle weightlifting with standard precautions to protect the back. Finding activity like cycling or hiking and get into the habit of engaging in it. Stretching before and after the exercises important. It is also important to contact me if there are any problems like shortness of breath, chest pain, back pain and joint or muscle pain associated with the exercise. 3. Discussed age appropriate screening guidelines. Colonoscopy needs to start at age 50 with stool for occult blood as appropriate. There is a new test that can test for genetic abnormalities in the stool sample, Cologuard. This would not replace a colonoscopy but could be used as a screening tool for patients who do not want a colonoscopy. We discussed the importance of early detection of colon cancer. 4. Discussed current guidelines with respect to breast examination, mammogram and pap smear for early detection of breast and cervical cancer. Patient advised to follow up with these appointments. 5. Discussed safe driving and no use of smart phone while driving 6. Age-appropriate immunizations were discussed. A tetanus booster is needed every 10 years. Flu vaccine is recommended every year just before the start of the flu season. Shingles vaccine is recommended after age 50 but not all insurances cover it. Pneumonia vaccine is given after age 65 unless there are certain comorbidities for which it is started earlier. 7. Diagnostic labs were discussed. These could include/not limited to CBC CMP and lipids with fasting blood glucose and insulin levels. Vitamin D and hemoglobin A1c testing might be appropriate. All quetsions answered to patients satisfaction. Patient verbalized understanding of diagnosis and treatments explained. To call sooner prior to next visit it any questions/concerns arise. Case discussed with collaborating physician Charelne Coley who reviewed the assessment and plan. Chart, medications, labs, vital signs reviewed. Dictation was accomplished with the use of [employer] voice recognition software, prone to medical misidentifications and grammatical errors. This is unintentional and the practitioner does try to identify and correct these, but some could still be present. Please do not hesitate to contact practitioner for clarification. 08/30/2024 Encounter for examination of blood pressure without abnormal findings (ICD-10 - Z01.30) Radha is a pleasant 34-year-old female presents the office for a complete physical. # Patient up-to-date on all routine screening and vaccines she is interested in. #Abd bloating/pain. At last visit, Counselled on use of excessive fiber causing actually increased constipation with lack of adequate water intake, as well as bloating. Decreased amount of Fiber One bars consumed. Continue with probiotics/prebiotic' s. Tried MiraLAX without relief, given lactulose which has been helping some. H. pylori breath test negative. Educated on bland diet, high-fiber foods, but avoiding fiber 1 bar given that it can cause constipation. Used to follow with gastroenterology at [facility], but recently referred to gastroenterology at [place], not scheduled till November so she is looking for a referral sooner. Will send to the [facility] clinic, patient will contact. Has had a history of CT of the abdomen and pelvis with IV contrast July 2020 showing large amount of stool in rectum without other findings, repeat 2023 negative. Now taking Linzess, without significant improvement. Recently had an abdominal x-ray without any concern for obstruction. Also taking dicyclomine 10 mg as needed. GI did recommend amitriptyline, but she declines at this time. Will refer to the [facility], consider colonoscopy. To be uncomfortable, going to the bathroom about 1 time weekly, with bloating. # Hx tob use: Quit 2012 # Hx of IVDA: Sober x 8 years #Depression: Sees a therapist, looking more for cognitive behavioral therapy, going through insurance for this. Used to be on medications for anxiety/depression but no longer needs them. #History of allergies: Seeing ndt inspector August 2023 #Leg swelling: US, CT abd & pelvis r/o pelvis mass Which was negative, complement studies neg. No longer taking Lasix. Blood pressure stable. Did consider renal ultrasound to rule out nephrotic syndrome, but no further workup needed at this time. Encouraged to continue with leg elevation/compression socks. # HTN.Blood pressure elevated at previous visits, controlled today. #Migraines: Patient taking Excedrin as needed with improvement in symptoms #Patient follows with [employer] closely, Due for Pap, discussed the importance that she does have a family history of cervical cancer. a history of an elective termination of at 19 years old with no concerns Patient to follow-up in December for complete physical, follow with gastroenterology in the meantime but discussed extensively criteria to call the office/emergency department criteria All quetsions answered to patients satisfaction. Patient verbalized understanding of diagnosis and treatments explained. To call sooner prior to next visit it any questions/concerns arise. Case discussed with collaborating physician Charlene Coley who reviewed the assessment and plan. Chart, medications, labs, vital signs reviewed. Dictation was accomplished with the use of [employer] voice recognition software, prone to medical misidentifications and grammatical errors. This is unintentional and the practitioner does try to identify and correct these, but some could still be present. Please do not hesitate to contact practitioner for clarification. Plan Of Treatment Pending Test Test Name Order Date CT Scan : Abdomen with IV and oral contr ast 07/30/2023 CT Pelvis 10/28/2023 XR Abdomen 1 View 08/21/2024 COMPREHENSIVE METABOLIC PANEL 03/31/2023 CBC (INCLUDES DIFF/PLT) 03/31/2023 Next Appt Details Provider Name:BRII MAMI, 12/20/2024 08:00:00 AM, [address], [place], [id number], Insurance Providers Payer Name Payer Address Payer Phone Subscriber Number Group Number Insured Name Patient Relationship to Insured Coverage Start Date Coverage End Date [facility] [address] [facility] [place] [address] [id number] Radha Johnson Self - patient is the insured 3 Medical (General) History Medical History History ICD Code Venous insufficiency I87.2 Lower extremity edema R60.0 Migraine, unspecified, not intractable, without status migrainosus G43.909 History of drug abuse F19.11 Constipation K59.00
== END 2024-11-17 13:15 | disposition home or self-care (01) ==
LOC: HO.HGI 12:30
PROVIDERS: PCP Nurse Practitioner Acute Care; Visit Provider Internal Medicine
DX: K58.9 Irritable bowel syndrome, unspecified (principal)
CPT/HCPCS: 99204; G2211

== ENCOUNTER 2024-11-17 12:29 | Outpatient (REF) | payer OTHER, SELFPAY ==
[2024-11-17 14:31] LABS: Hematocrit 37.5 % (37.0-47.0); Hemoglobin 13.4 g/dl (12.0-16.0); Mean Corpuscular HGB Conc 35.7 g/dl (31.0-35.0); Mean Corpuscular Hemoglobin 31.4 pg (27.0-33.0); Mean Corpuscular Volume 87.8 fL (80.0-98.0); NRBC Abs Auto 0.000 X10*3/uL (0.0-0.012); NRBC Pct Auto 0.0 /100WBC (0.0-0.2); Platelet Count 266 X10*3/uL (160-400); Red Blood Count 4.27 X10*6/uL (4.20-5.50); White Blood Count 5.4 X10*3/uL (4.8-10.8)
[2024-11-17 15:13] LABS: Calcium 9.3 mg/dL (8.4-10.2); Magnesium 2.1 mg/dL (1.6-2.6)
[2024-11-18 09:23] LABS: Immunoglobulin A 163 mg/dL (47-310)
== END 2024-11-17 12:30 | disposition home or self-care (01) ==
LOC: HO.LAB 12:29
PROVIDERS: PCP Nurse Practitioner Acute Care; Visit Provider Internal Medicine
DX: K58.1 Irritable bowel syndrome with constipation (principal); R10.11 Right upper quadrant pain
CPT/HCPCS: 36415; 82310; 82784; 83735; 84443; 85027; 86364

== ENCOUNTER 2025-01-12 13:37 | Outpatient (AMB) | payer OTHER, SELFPAY ==
--- NOTE | 2025-01-12 13:37 | MHC.OFFVIS ---
Intake Visit Reasons: 6-8 wks f/u Intake Note: Radha presents as a telehealth as a 8 week follow up. CC: States that she was seen at [facility] and they want to do a colo so she wants to discuss with her. Area Director Of Home Health Sales Required: No Allergies No Known Allergies Allergy (Verified 11/16/24 08:17) HPI Comments Details: 34 y.o F with PMH of prior recreational drug use, who is here for second opinion for constipation. Reports onset almost 3 years ago. Can go anwhere between 3-7 days without having a BM. Has been taking miralax and lactulose for this without significant change. Has also been eliminating certain triggers without much effect. one BM per week which is bristol scale 1-2. Has frequent urges but unable to evacuate. Strains. Spends 5-10 mins on the toilet. Uses a stool to keep her legs up while defecation. Diet: adequate hydration. Some room for fiber addition. Has good activity levels. Currently on linzess 145 mcg + lactulose once daily. Causes bloating and cramping. Did not notice much difference going from 72 to 145 mcg in dosing. Has also tried trulance in the past for almost a year before she switched to linzess. 01/12/25: Here as a televisit. Reports incomplete response to Amitiza. In combination with bisacodyl was doing fairly well. Has also been seen at least he as a 3rd opinion for IBS. Going for a colonoscopy in March. Patient also reports correlation of symptoms specially with her menstrual cycle. [facility] Medical History (Updated 11/17/24 @ 13:18 by Kalyani Isbell MD) Constipation Family History Maternal Grandfather Colon cancer Review of Systems Const All systems reviewed & are unremarkable except as noted in HPI and below Physical Exam Exam Exam: Video visit: No acute distress No icterus noted No facial asymmetry Speaking in full sentences Telehealth Telehealth Telehealth Platform: [facility] Location of provider rendering services: practice address Location of patient: address on file Patient Identification confirmed using: Name, : Yes Telehealth method: video Patient verbally consented to treatment: Yes Patient verbally consented to billing insurance company: Yes Patient informed of any privacy concerns related to visit: Yes Minutes spent on Phone/Video with Pt.: 12 Assessment & Plan Assessment & Plan (1) IBS (irritable bowel syndrome): Code(s): K58.9 - Irritable bowel syndrome, unspecified Category: Medical Plan Sx are consistent with IBS-C. Limited effect with osmotic laxatives, trulance and linzess. Has incomplete response to Amitiza, will optimize dose. Labs reviewed and all within normal limits. Discussed that would also recommend CT abdomen and pelvis with IV contrast to rule out endometriosis specially given symptom correlation with menstrual cycle. However advised to review coverage with insurance, as also being seen at [facility]. Plan: - Cont good hydration - continue fiber supplementation - Cont to elevate legs while having a BM - increase amitiza 16 mcg BID - Reviewed miralax can be titrated to effect - Bisacodyl 10 mg once daily if no bowel movement for 3 days - patient is also seeking a 3rd opinion from [facility]. Reports colonoscopy scheduled for March - patient advised to send us a portal message if ok to get CT abd/pel ordered through [facility] Follow up 3 months Medications: Changed From lubiprostone (Amitiza) 8 mcg PO BID 90 days 180 caps 0RF To lubiprostone (Amitiza) 16 mcg (2 x 8 mcg) PO BID 360 caps 1RF 90 days Refilled bisacodyl 10 mg (2 x 5 mg) PO BEDTIME 28 tabs 0RF 14 days Coding Level of Care Code Tele Est Pt Level 3 (63228) Diagnoses IBS (irritable bowel syndrome) K58.9
--- OUTSIDE RECORDS SUMMARY | 2025-01-12 14:51 | XMS_ITS | Clinical Summary ---
Author Organization [employer] [facility] ity Address [address] [place] [address] Care Team Providers Care Electric Range Preparer Name Role Phone Enmanuel Galeana Primary Care Provider [phone] Medications Trulance 3 mg tablet TAKE 1 TABLET BY MOUTH DAILY 30 tablet 07/27/2024 Active lactulose (CHRONULAC) solution TAKE 30 ML BY MOUTH TWICE DAILY 473 mL 07/27/2024 Active Surgical History Surgery Date Site/Laterality Comments OTHER SURGICAL HISTORY PROCEDURE: DENIES PREVIOUS SURGERY Medical History Medical History Date Comments Opiate abuse, continuous (CM S/HCC V24, CMS/HCC V28) DX:Opiate abuse, continuous (HCC); COMMENT: released [facility] 01/05 Depression DX:Depression; C OMMENT: since [...] Cervical Cancer Screening: P ap Smear 2011 HPV Vaccines (1 - 3-dose SCD M series) 2017 HIV Screening 03/16/2022 Hepatitis C Screening 03/16/2022 Social Influencers of Health Screening 03/16/2022 Depression Screening 04/14/2024 COVID-19 Vaccine (1 - 2023-2 5 season) 2024 Influenza Vaccine (#1) 2024 01/10/2015 RSV Immunization Adult Patie nts (1 - 1-dose 75+ series) 2065 HIB Vaccines Aged Out No longer eligi [...] age to complete this topic Care Teams Electric Range Preparer Relationship Specialty Start Date End Date Enmanuel Galeana PA [address] [place] [address] PCP - General 04/16/23
== END 2025-01-12 18:56 ==
LOC: HO.HGI 13:37
PROVIDERS: PCP Nurse Practitioner Acute Care; Visit Provider Internal Medicine
DX: K58.9 Irritable bowel syndrome, unspecified (principal)
CPT/HCPCS: 99213